=== PATIENT | female | born 1945 | race Native Hawaiian/Other Pacific Islander ===

== ENCOUNTER 2016-11-24 10:53 | Emergency (ER) | payer OTHER ==
[~2016-11-24] VITALS: Ht 162.6 cm; Wt 46.7 kg
== END 2016-11-24 13:03 | disposition left against medical advice (07) ==
LOC: ED 10:53
DX: S42.491K Other displaced fracture of lower end of right humerus, subsequent encounter for fracture with nonunion (principal); X58.XXXD Exposure to other specified factors, subsequent encounter
CPT/HCPCS: 90715; 96372; 99283; J0690